=== PATIENT | female | born 1965 | race Hispanic/Latino ===

== ENCOUNTER 2019-01-07 08:31 | Day surgery (SDC) | payer OTHER ==
[~2019-01-07] VITALS: Ht 157.5 cm; Wt 114.3 kg
[~2019-01-07 08:31] MED LIST: SODIUM CHLORIDE 0.9% 1000ML 1,000 ML IV ONE
[2019-01-07 10:01] VITALS: BP 148/97
[2019-01-07] MEDS ORDERED: PROPOFOL 10 MG/ML 20ML VIAL IV ONE (10:20)
[2019-01-07] MEDS ORDERED: QUET50TA PO (10:25)
[2019-01-07] MEDS ORDERED: LEVO100T12 PO (10:25)
[2019-01-07] MEDS ORDERED: CLOT15C TP (10:25)
[2019-01-07] MEDS ORDERED: GLYB5TAB8 PO (10:25)
[2019-01-07] MEDS ORDERED: ALBUHFA IH (10:25)
[2019-01-07] MEDS ORDERED: CICL6.6S TP (10:25)
[2019-01-07] MEDS ORDERED: LINA5TAB PO (10:25)
[2019-01-07] MEDS ORDERED: LISI-617 PO (10:25)
[2019-01-07] MEDS ORDERED: SIMV10TA97 PO (10:25)
[2019-01-07] MEDS ORDERED: BUSP30TA2 PO (10:25)
[2019-01-07] MEDS ORDERED: CETI10TA57 PO (10:25)
[2019-01-07] MEDS ORDERED: MONT10TA21 PO (10:25)
[2019-01-07] MEDS ORDERED: A20IH1 IH (10:25)
[2019-01-07] MEDS ORDERED: NYST15OI TP (10:28)
[2019-01-07] MEDS ORDERED: LORA10TA7 PO (10:28)
[2019-01-07] MEDS ORDERED: METF500T20 PO (10:28)
[2019-01-07 10:30] VITALS: BP 95/52
[2019-01-07 10:35] VITALS: BP 109/55
[2019-01-07 10:40] VITALS: BP 100/55
[2019-01-07 10:45] VITALS: BP 118/58
[2019-01-07 10:50] VITALS: BP 124/58
--- NOTE | 2019-01-07 10:55 | NUR ---
dc pt dc home via [place], no distress n oted. patient denied any pain or discomforts. pt accompanied by sister in law. dc instructions reinforced again. to continue home meds, to f/u with dr araiza. both patient / sister in law verbalized understanding.
== END 2019-01-07 10:55 | disposition home or self-care (01) ==
LOC: DAH 08:31 → ENDO 08:31
PROVIDERS: ATTEND Internal Medicine
DX: Z12.11 Encounter for screening for malignant neoplasm of colon (principal); D12.2 Benign neoplasm of ascending colon; K57.30 Diverticulosis of large intestine without perforation or abscess without bleeding; K64.0 First degree hemorrhoids; I10 Essential (primary) hypertension; F41.9 Anxiety disorder, unspecified; F32.9 Major depressive disorder, single episode, unspecified; G47.33 Obstructive sleep apnea (adult) (pediatric); E11.9 Type 2 diabetes mellitus without complications; J45.909 Unspecified asthma, uncomplicated; E78.5 Hyperlipidemia, unspecified; E03.9 Hypothyroidism, unspecified; E66.01 Morbid (severe) obesity due to excess calories; Z79.899 Other long term (current) drug therapy; Z68.42 Body mass index [BMI] 45.0-49.9, adult
CPT/HCPCS: 45380; 82948 ×2; 88305; A4215; A4221; A4222; A4223; A4606; A4615; A4663; J2704; J7030

== ENCOUNTER → 2020-07-30 | Outpatient (CLI) | payer MEDICARE ==
[~2020-07-30] MED LIST changes: +A20IH1 IH; +ALBUHFA IH; +BUSP30TA2 PO; +CETI10TA57 PO; +CICL6.6S TP; +CLOT15C TP; +GLYB5TAB8 PO; +LEVO100T12 PO; +LINA5TAB PO; +LISI-809 PO; +LORA10TA7 PO; +METF-910 PO; +MONT10TA21 PO; +NYST15OI TP; +QUET50TA PO; +SIMV10TA97 PO; -SODIUM CHLORIDE 0.9% 1000ML 1,000 ML IV ONE
== END | disposition home or self-care (01) ==
LOC: RAH 07:25
PROVIDERS: ATTEND Internal Medicine Gastroenterology
DX: K75.81 Nonalcoholic steatohepatitis (NASH) (principal); R77.2 Abnormality of alphafetoprotein; R16.0 Hepatomegaly, not elsewhere classified; K76.6 Portal hypertension
CPT/HCPCS: 76700; 93975

== ENCOUNTER 2023-09-23 17:16 | Emergency (ER) | payer MEDICARE ==
[~2023-09-23] VITALS: Ht 157.5 cm; Wt 106.1 kg
[~2023-09-23 17:16] MED LIST changes: -LISI-809 PO; +LISI5TAB21 PO; +MONT-46 PO; -MONT10TA21 PO; -NYST15OI TP; +NYST15OI4 TP
[2023-09-23] MEDS: CYCLOBENZAPRINE HCL 10 MG TABLET PO ONE (18:21)
[2023-09-23 18:31] VITALS: BP 145/78; PULSE 70; RESP 18; O2SAT 98
[2023-09-23 18:38] LABS: APPEARANCE,URINE CLEAR (CLEAR); BILIRUBIN,URINE NEGATIVE (NEGATIVE); COLOR,URINE COLORLESS (YELLOW); GLUCOSE, URINE (UA) NEGATIVE (NEGATIVE); KETONES,URINE NEGATIVE (NEGATIVE); LEUKOCYTE ESTERASE ,URINE NEGATIVE Leu/uL (NEGATIVE); NITRATE,URINE NEGATIVE (NEGATIVE); OCCULT BLOOD,URINE NEGATIVE (NEGATIVE); PH,URINE 5.5 (5.0-8.0); PROTEIN,URINE NEGATIVE (NEGATIVE); UROBILINOGEN,URINE 0.2 mg/dL (0.2-1.0)
[2023-09-23 18:41] LABS: ADD UA MICROSCOPIC YES
[2023-09-23 18:45] LABS: BACTERIA,URINE RARE /HPF (None Seen); MUCUS,URINE RARE LPF (None Seen); SQUAMOUS EPITHELIAL CELL,UR FEW /HPF (0-2)
[2023-09-23] MEDS: TRIAMCINOLONE ACETONIDE 40 MG/ML 1ML VIAL IM ONE (18:52)
[2023-09-23] MEDS ORDERED: CYCL10TA16 PO (19:38)
== END 2023-09-24 00:22 | disposition home or self-care (01) ==
LOC: EDH 17:16
DX: G57.01 Lesion of sciatic nerve, right lower limb (principal); E11.9 Type 2 diabetes mellitus without complications; J45.909 Unspecified asthma, uncomplicated; E03.9 Hypothyroidism, unspecified; Z79.899 Other long term (current) drug therapy; Z79.84 Long term (current) use of oral hypoglycemic drugs; Z90.710 Acquired absence of both cervix and uterus
CPT/HCPCS: 99283; 81001; 96372; J3301